=== PATIENT | female | born 1985 | race Caucasian/White ===

== ENCOUNTER → 2017-02-10 | Outpatient (CLI) | payer BC, OTHER ==
[2017-02-10 14:29] LABS: ESTRADIOL 560.1 PG/ML; PROGESTERONE 29.1 NG/ML
== END ==
LOC: M WUC 12:23
PROVIDERS: ATTEND Obstetrics & Gynecology Reproductive Endocrinology
DX: N97.9 Female infertility, unspecified (principal)

== ENCOUNTER → 2017-02-17 | Outpatient (CLI) | payer BC, OTHER ==
[2017-02-17 11:26] LABS: HCG, SERUM QUANTITATIVE < 1.0 MIU/ML
[2017-02-17 11:54] LABS: PROGESTERONE 4.8 NG/ML
== END ==
LOC: M LAB 09:49
PROVIDERS: ATTEND Obstetrics & Gynecology Reproductive Endocrinology
DX: N97.9 Female infertility, unspecified (principal)

== ENCOUNTER → 2017-02-21 | Outpatient (CLI) | payer BC, OTHER ==
--- NOTE | 2017-02-21 16:42 | REP ---
Clinical: Infertility. Technique: Transvaginal ultrasound examination. Findings: Normal anteverted uterus measures 7.8 x 4.0 x 5.1 cm. The endometrial complex measures 4.4 mm thickness with trace fluid in the endocervical canal. Right ovary measures 3.9 x 3.1 x 4.1 cm with 1.5 cm follicle. Left ovary measures 2.6 x 2.1 x 2.0 cm with 6 mm follicle. No pelvic fluid or adnexal mass lesion. Impression: Infertility study as described above without significant follicles noted. Signed by John Valente MD 02/21/2017 04:33 P
[2017-02-21 16:47] LABS: HCG, SERUM QUANTITATIVE < 1.0 MIU/ML; PROGESTERONE 0.9 NG/ML
[2017-02-21 16:48] LABS: ESTRADIOL 40.3 PG/ML; FOLLICLE STIMULATING HORMONE 5.9 mIU/mL; LUTEINIZING HORMONE 2.4 mIU/mL
== END ==
LOC: M LAB 15:48
PROVIDERS: ATTEND Obstetrics & Gynecology Reproductive Endocrinology
DX: E28.9 Ovarian dysfunction, unspecified (principal)

== ENCOUNTER → 2017-07-10 | Outpatient (CLI) | payer BC, OTHER | LOC: M LRY 13:49 | DX: Z34.82 Encounter for supervision of other normal pregnancy, second trimester (principal) ==

== ENCOUNTER → 2017-08-07 | Outpatient (CLI) | payer BC, OTHER | LOC: M LRY 13:51 | DX: Z34.82 Encounter for supervision of other normal pregnancy, second trimester (principal) ==

== ENCOUNTER → 2017-08-26 | Outpatient (CLI) | payer BC, OTHER ==
[2017-08-26 15:30] LABS: HEMATOCRIT 35.4 % (36.0-47.0); HEMOGLOBIN 11.2 g/dl (12.0-16.0); MEAN CORPUSCULAR HEMOGLOBIN 27.5 pg (27.0-33.0); MEAN CORPUSCULAR HGB CONC 31.6 g/dl (32.0-36.5); PLATELET COUNT, AUTOMATED 371 10^3/uL (150-450); RED BLOOD COUNT 4.07 10^6/uL (4.00-5.40); RED CELL DISTRIBUTION WIDTH 14.5 % (11.5-14.5); WHITE BLOOD COUNT 13.6 10^3/uL (4.0-10.0)
[2017-08-26 15:42] LABS: GLUCOSE CHALLENGE TEST 1 HOUR 127 MG/DL (LESS THAN 140)
[2017-08-28 08:44] LABS: RH ONLY RHOGAM 1 1
== END ==
LOC: M LAB 13:33
DX: Z34.82 Encounter for supervision of other normal pregnancy, second trimester (principal)
CPT/HCPCS: 82950

== ENCOUNTER → 2017-09-12 | Outpatient (CLI) | payer BC, OTHER | LOC: M RAD 16:11 | DX: Z34.82 Encounter for supervision of other normal pregnancy, second trimester (principal); Z3A.27 27 weeks gestation of pregnancy ==

== ENCOUNTER → 2017-11-03 | Outpatient (CLI) | payer BC, OTHER | LOC: M LRY 13:41 | DX: O26.843 Uterine size-date discrepancy, third trimester (principal); Z3A.37 37 weeks gestation of pregnancy | CPT/HCPCS: 76816 ==

== ENCOUNTER → 2017-11-10 | Outpatient (REF) | payer OTHER | LOC: M LAB REF 10:55 | DX: Z34.83 Encounter for supervision of other normal pregnancy, third trimester (principal) ==

== ENCOUNTER 2017-12-11 18:08 | Inpatient (IN) | payer BC, OTHER ==
[2017-12-11] MEDS: LACTATED RINGER'S 1000 ML IV (19:40)
[2017-12-11] MEDS: miSOPROStol 50 MCG 1/2 TAB (S0191) SL (19:50)
[2017-12-11 20:13] LABS: HEMATOCRIT 31.8 % (36.0-47.0); HEMOGLOBIN 9.8 g/dl (12.0-15.5); MEAN CORPUSCULAR HGB CONC 30.8 g/dl (32.0-36.5); MEAN CORPUSCULAR VOLUME 81.1 fl (80.0-96.0); PLATELET COUNT, AUTOMATED 290 10^3/uL (150-450); RED BLOOD COUNT 3.92 10^6/uL (4.00-5.40); RED CELL DISTRIBUTION WIDTH 15.6 % (11.5-14.5)
[2017-12-12] MEDS: miSOPROStol 50 MCG 1/2 TAB (S0191) SL ×3 (01:38→13:27)
[2017-12-12] MEDS ORDERED: hydrOXYzine 50 MG TAB PO (02:45)
[2017-12-12] MEDS: BUTORPHANOL 2 MG/ML INJ (J0595) IV ×2 (03:01→07:06)
[2017-12-12] MEDS: PROMETHAZINE INJ 25 MG/ML VIAL (J2550) IV ×2 (03:01→07:06)
[2017-12-12] MEDS: LEVOTHYROXINE 50MCG TABLET (0.05MG) PO (07:07)
[2017-12-12] MEDS: LR 1,000 ML IV ×2 (08:07→09:57)
[2017-12-12] MEDS ORDERED: FENTANYL 2MCG/ML ROPIVACAINE 0.2% IN 0.9% NACL 200ML IVBAG As Ordered (20:09)
[2017-12-13] MEDS ORDERED: OXYTOCIN DRIP 30 UNITS in APPROPRIATE DILUENT 1 EA IV (03:00)
[2017-12-13] MEDS: cefoTEtan DISODIUM 2 GM in D5W MINI-BAG PLUS 50 ML IV ×2 (06:00→17:56)
[2017-12-13] MEDS: LR 1,000 ML IV (06:06)
[2017-12-13] MEDS: OXYTOCIN DRIP 30 UNITS in APPROPRIATE DILUENT 1 EA IV (06:06)
[2017-12-13] MEDS ORDERED: OXYTOCIN 30 UNITS IN 0.9% NaCl 500ML IV BAG (J2590) As Ordered (06:09)
[2017-12-13] MEDS ORDERED: ACETAMINOPHEN 500 MG TAB PO (06:15)
[2017-12-13] MEDS ORDERED: PROMETHAZINE 25 MG TAB PO (06:15)
[2017-12-13] MEDS ORDERED: DIBUCAINE 1% OINTMENT 30GM TOP (06:15)
[2017-12-13] MEDS ORDERED: MEASLES,MUMPS,RUBELLA VACCINE INJ (MMR-II) (90707) SC (06:15)
[2017-12-13] MEDS ORDERED: ONDANSETRON 4MG/2ML VIAL (J2405) IV (06:15)
[2017-12-13] MEDS: LEVOTHYROXINE 50MCG TABLET (0.05MG) PO (06:54)
[2017-12-13] MEDS: PRENATAL VITAMINS CHEWABLE TABLET PO (09:04)
[2017-12-13] MEDS: IBUPROFEN 800 MG TAB PO ×2 (09:05→17:18)
[2017-12-14] MEDS: LEVOTHYROXINE 50MCG TABLET (0.05MG) PO (05:40)
[2017-12-14 08:46] LABS: FETAL SCREEN PROF. 1 1
[2017-12-14] MEDS: PRENATAL VITAMINS CHEWABLE TABLET PO (09:09)
[2017-12-14] MEDS: DOCUSATE SODIUM 100 MG CAP PO (09:09)
[2017-12-14] MEDS: RHOGAM 300 MCG (1500 IU) INJ (J2790) IM (09:11)
[2017-12-15] MEDS: LEVOTHYROXINE 50MCG TABLET (0.05MG) PO (05:53)
[2017-12-15] MEDS: PRENATAL VITAMINS CHEWABLE TABLET PO (09:34)
== END 2017-12-15 12:45 | disposition home or self-care (01) | DRG 542 ==
LOC: M LDI 18:08 → M OBS 12-13 08:30
PROVIDERS: Advanced Practice Midwife
PROC: 3E0DXGC Introduction of Other Therapeutic Substance into Mouth and Pharynx, External Approach (ICD-10-PCS; 2017-12-11)
PROC: 10E0XZZ Delivery of Products of Conception, External Approach (ICD-10-PCS; principal; 2017-12-13)
PROC: 0DQR0ZZ Repair Anal Sphincter, Open Approach (ICD-10-PCS; 2017-12-13)
PROC: 10907ZC Drainage of Amniotic Fluid, Therapeutic from Products of Conception, Via Natural or Artificial Opening (ICD-10-PCS; 2017-12-13)
PROC: 30233S1 Transfusion of Nonautologous Globulin into Peripheral Vein, Percutaneous Approach (ICD-10-PCS; 2017-12-14)
DX: O48.0 Post-term pregnancy (principal); Z68.43 Body mass index [BMI] 50.0-59.9, adult; O36.0130 Maternal care for anti-D [Rh] antibodies, third trimester, not applicable or unspecified; E66.01 Morbid (severe) obesity due to excess calories; O70.21 Third degree perineal laceration during delivery, IIIa; O99.284 Endocrine, nutritional and metabolic diseases complicating childbirth; E03.8 Other specified hypothyroidism; O99.824 Streptococcus B carrier state complicating childbirth; O99.214 Obesity complicating childbirth; Z37.0 Single live birth; Z3A.41 41 weeks gestation of pregnancy; Z79.899 Other long term (current) drug therapy

== ENCOUNTER 2018-03-16 09:58 | Day surgery (SDC) | payer BC, OTHER ==
[~2018-03-16 09:58] MED LIST: LR 1,000 ML IV
[2018-03-16 10:43] LABS: CONTROL LINE UCG INT CTR LINE PRESENT; URINE PREG TEST NEGATIVE (NEGATIVE)
[2018-03-16] MEDS ORDERED: ONDANSETRON 4MG/2ML VIAL (J2405) As Ordered (11:31)
[2018-03-16] MEDS ORDERED: KETOROLAC 60 MG/2 ML VIAL (J1885) As Ordered (11:31)
[2018-03-16] MEDS ORDERED: LIDOCAINE 2% INJ 100 MG/5 ML SDV (FOR ANES.) As Ordered (11:31)
[2018-03-16] MEDS ORDERED: fentaNYL 250 MCG/5 ML INJECTION (J3010) As Ordered (11:31)
[2018-03-16] MEDS ORDERED: dexameTHASONE 4 MG/ML 1ML VIAL (J1100) As Ordered (11:31)
[2018-03-16] MEDS ORDERED: MIDAZOLAM INJ 2 MG/2 ML VIAL (J2250) As Ordered (11:31)
[2018-03-16] MEDS ORDERED: ROCURONIUM BROMIDE 50 MG/5 ML VIAL As Ordered ×2 (11:31→13:25)
[2018-03-16] MEDS ORDERED: PROPOFOL 200 MG/20 ML VIAL As Ordered (11:31)
[2018-03-16] MEDS ORDERED: SUGAMMADEX SODIUM 500 MG/5 ML VIAL (BRIDION) As Ordered (14:14)
[2018-03-16] MEDS ORDERED: HYDROmorphone HCL 2 MG/ML 1ML VIAL (J1170) As Ordered (14:14)
[2018-03-16] MEDS: BUPIVACAINE HCL 0.25% 30 ML VIAL As Ordered (15:00)
[2018-03-16] MEDS ORDERED: ALBUTEROL 6.7GM INHALER **FOR ANES. CART/OMNICELL ONLY As Ordered (15:33)
[2018-03-16] MEDS ORDERED: LR 1,000 ML IV (15:45)
[2018-03-16] MEDS ORDERED: ACETAMINOPHEN TAB 650MG DOSE (2X325MG) PO (15:45)
[2018-03-16] MEDS ORDERED: PERCOCET 5MG/325MG TAB PO (15:45)
[2018-03-16] MEDS ORDERED: ONDANSETRON 4MG/2ML VIAL (J2405) IV (15:45)
[2018-03-16] MEDS ORDERED: fentaNYL 100 MCG/2 ML INJECTION (J3010) IV (15:45)
[2018-03-16] MEDS ORDERED: IBUPROFEN 600 MG TAB PO (16:00)
[2018-03-16] MEDS ORDERED: NORCO, ANEXSIA 5/325MG TABLET (HYDROcodone/ACETAMINOPHEN) PO (16:00)
[2018-03-16] MEDS: METOCLOPRAMIDE INJ 10MG/2ML VIAL (J2765) IV (17:40)
[2018-03-16] MEDS ORDERED: METOCLOPRAMIDE INJ 10MG/2ML VIAL (J2765) As Ordered (17:40)
== END 2018-03-16 18:35 | disposition home or self-care (01) ==
LOC: M SDC 09:58
DX: K80.10 Calculus of gallbladder with chronic cholecystitis without obstruction (principal); E66.9 Obesity, unspecified; Z68.42 Body mass index [BMI] 45.0-49.9, adult; Z88.2 Allergy status to sulfonamides
CPT/HCPCS: 47562

== ENCOUNTER → 2018-08-18 | Outpatient (REF) | payer BC, OTHER ==
[~2018-08-18] MED LIST changes: +ALLE180T33 PO; +IBUP-1114 PO; +LEVO50TA5 PO; -LR 1,000 ML IV; +MAPA500T2 PO; +PRENTAB9 PO
== END ==
LOC: M LAB REF 12:42
PROVIDERS: ATTEND Internal Medicine
DX: R19.7 Diarrhea, unspecified (principal)

== ENCOUNTER → 2020-06-19 | Outpatient (CLI) | payer BC, OTHER ==
[2020-06-19 16:03] LABS: BASO % 0.2 % (0.0-1.0); EOS # 0.1 10^3/uL (0.0-0.5); HEMATOCRIT 37.8 % (36.0-47.0); HEMOGLOBIN 11.5 g/dl (12.0-15.5); LYMPH # 1.9 10^3/uL (1.5-5.0); MEAN CORPUSCULAR HGB CONC 30.4 g/dl (32.0-36.5); MEAN CORPUSCULAR VOLUME 85.5 fl (80.0-96.0); MONO # 0.6 10^3/uL (0.0-0.8); NEUTROPHILS # 5.6 10^3/uL (1.5-8.5); NEUTROPHILS % 68.6 % (36.0-66.0); PLATELET COUNT, AUTOMATED 240 10^3/uL (150-450); RED BLOOD COUNT 4.42 10^6/uL (4.00-5.40); WHITE BLOOD COUNT 8.1 10^3/uL (4.0-10.0)
[2020-06-19 16:32] LABS: BLOOD UREA NITROGEN 18 MG/DL (7-18); CALCIUM LEVEL 8.7 MG/DL (8.5-10.1); CARBON DIOXIDE LEVEL 26 MEQ/L (21-32); CHLORIDE LEVEL 111 MEQ/L (98-107); CREATININE FOR GFR 0.78 MG/DL (0.55-1.30); GLOMERULAR FILTRATION RATE > 60.0 (>60); GLUCOSE, FASTING 94 MG/DL (70-100); POTASSIUM SERUM 4.2 MEQ/L (3.5-5.1); SODIUM LEVEL 143 MEQ/L (136-145)
[2020-06-19 16:33] LABS: ALBUMIN 3.6 GM/DL (3.2-5.2); ALT/SGPT 17 U/L (12-78); BILIRUBIN,TOTAL 0.3 MG/DL (0.2-1.0); FERRITIN 11 NG/ML (8-252); IRON (FE) 59 UG/DL (50-170); PERCENT SATURATION 18.2 % (13.2-45.0); TOTAL IRON BINDING CAPACITY 324 UG/DL (250-450); TOTAL PROTEIN 6.9 GM/DL (6.4-8.2)
[2020-06-22 10:30] LABS: TOTAL 25(OH) VITAMIN D 45.1 NG/ML (30.0-100.0); VITAMIN B12 LEVEL 629 PG/ML (247-911)
[2020-06-22 10:32] LABS: FOLATE > 24.0 NG/ML (>5.4)
== END ==
LOC: M LAB 15:22
PROVIDERS: ATTEND Registered Nurse
DX: E55.9 Vitamin D deficiency, unspecified (principal)

== ENCOUNTER → 2021-01-13 | Outpatient (CLI) | payer BC, OTHER ==
[2021-01-13 10:55] LABS: BASO % 0.5 % (0.0-1.0); EOS % 0.7 % (0.0-3.0); HEMATOCRIT 41.4 % (36.0-47.0); HEMOGLOBIN 12.7 g/dl (12.0-15.5); LYMPH # 1.4 10^3/uL (1.5-5.0); LYMPH % 24.2 % (24.0-44.0); MEAN CORPUSCULAR HGB CONC 30.7 g/dl (32.0-36.5); MEAN CORPUSCULAR VOLUME 84.8 fl (80.0-96.0); MONO # 0.3 10^3/uL (0.0-0.8); MONO % 5.8 % (2.0-8.0); NEUTROPHILS # 4.1 10^3/uL (1.5-8.5); NEUTROPHILS % 68.6 % (36.0-66.0); PLATELET COUNT, AUTOMATED 255 10^3/uL (150-450); RED BLOOD COUNT 4.88 10^6/uL (4.00-5.40); WHITE BLOOD COUNT 5.9 10^3/uL (4.0-10.0)
[2021-01-13 11:29] LABS: ALBUMIN 3.7 GM/DL (3.2-5.2); ALT/SGPT 16 U/L (12-78); BILIRUBIN,TOTAL 0.4 MG/DL (0.2-1.0); BLOOD UREA NITROGEN 14 MG/DL (7-18); CALCIUM LEVEL 9.2 MG/DL (8.5-10.1); CARBON DIOXIDE LEVEL 29 MEQ/L (21-32); CHLORIDE LEVEL 110 MEQ/L (98-107); CREATININE FOR GFR 0.82 MG/DL (0.55-1.30); FERRITIN 16 NG/ML (8-252); GLOMERULAR FILTRATION RATE > 60.0 (>60); GLUCOSE, FASTING 88 MG/DL (70-100); IRON (FE) 27 UG/DL (50-170); PERCENT SATURATION 8.1 % (13.2-45.0); POTASSIUM SERUM 4.7 MEQ/L (3.5-5.1); SODIUM LEVEL 143 MEQ/L (136-145); TOTAL IRON BINDING CAPACITY 333 UG/DL (250-450); TOTAL PROTEIN 7.2 GM/DL (6.4-8.2)
[2021-01-13 11:31] LABS: TOTAL 25(OH) VITAMIN D 55.7 NG/ML (30.0-100.0)
[2021-01-13 11:32] LABS: FOLATE 11.5 NG/ML (>5.4); VITAMIN B12 LEVEL 1892 PG/ML (247-911)
== END ==
LOC: M LAB 10:04
PROVIDERS: ATTEND Registered Nurse
DX: Z01.812 Encounter for preprocedural laboratory examination (principal); D56.0 Alpha thalassemia; E55.9 Vitamin D deficiency, unspecified; D51.9 Vitamin B12 deficiency anemia, unspecified; E51.9 Thiamine deficiency, unspecified

== ENCOUNTER → 2021-11-10 | Outpatient (CLI) | payer BC, OTHER | LOC: M LAB 16:47 | PROVIDERS: ATTEND Obstetrics & Gynecology | DX: Z32.01 Encounter for pregnancy test, result positive (principal) ==

== ENCOUNTER → 2021-11-29 | Outpatient (CLI) | payer BC, OTHER ==
[2021-11-29 16:28] LABS: HEMOGLOBIN 14.9 g/dl (12.0-15.5); MEAN CORPUSCULAR HEMOGLOBIN 28.4 pg (27.0-33.0); MEAN CORPUSCULAR HGB CONC 32.4 g/dl (32.0-36.5); MEAN CORPUSCULAR VOLUME 87.8 fl (80.0-96.0); PLATELET COUNT, AUTOMATED 202 10^3/uL (150-450); RED BLOOD COUNT 5.24 10^6/uL (4.00-5.40); WHITE BLOOD COUNT 9.4 10^3/uL (4.0-10.0)
[2021-11-29 17:24] LABS: GC DNA AMPLIFICATION NEGATIVE (NEGATIVE)
[2021-11-29 17:49] LABS: HEPATITIS C VIRUS ABY INDEX 0.1 INDEX (<0.8); HIV 1&2 SCREEN CENTAUR NEGATIVE (NEGATIVE)
== END ==
LOC: M PLALAB 12:16
PROVIDERS: ATTEND Obstetrics & Gynecology
DX: Z34.91 Encounter for supervision of normal pregnancy, unspecified, first trimester (principal)

== ENCOUNTER → 2021-12-27 | Outpatient (REF) | payer OTHER | LOC: M SFHCWAGY 16:38 | PROVIDERS: ATTEND Obstetrics & Gynecology | DX: O99.842 Bariatric surgery status complicating pregnancy, second trimester (principal) ==

== ENCOUNTER → 2022-02-02 | Outpatient (CLI) | payer BC, OTHER | LOC: M WHC 12:59 | PROVIDERS: ATTEND Obstetrics & Gynecology | DX: O99.842 Bariatric surgery status complicating pregnancy, second trimester (principal); Z3A.20 20 weeks gestation of pregnancy ==

== ENCOUNTER → 2022-03-01 | Outpatient (CLI) | payer BC, OTHER ==
[2022-03-01 10:56] LABS: HEMATOCRIT 38.8 % (36.0-47.0); HEMOGLOBIN 12.3 g/dl (12.0-15.5); MEAN CORPUSCULAR HEMOGLOBIN 29.5 pg (27.0-33.0); MEAN CORPUSCULAR HGB CONC 31.7 g/dl (32.0-36.5); PLATELET COUNT, AUTOMATED 284 10^3/uL (150-450); RED BLOOD COUNT 4.17 10^6/uL (4.00-5.40); WHITE BLOOD COUNT 8.9 10^3/uL (4.0-10.0)
[2022-03-01 11:37] LABS: ALBUMIN 2.8 GM/DL (3.2-5.2); ALT/SGPT 10 U/L (12-78); BILIRUBIN,TOTAL 0.3 MG/DL (0.2-1.0); BLOOD UREA NITROGEN 11 MG/DL (7-18); CALCIUM LEVEL 8.9 MG/DL (8.5-10.1); CARBON DIOXIDE LEVEL 21 MEQ/L (21-32); CHLORIDE LEVEL 108 MEQ/L (98-107); GLOMERULAR FILTRATION RATE > 60.0 (>60); GLUCOSE, FASTING 81 MG/DL (70-100); POTASSIUM SERUM 4.8 MEQ/L (3.5-5.1); SODIUM LEVEL 137 MEQ/L (136-145); TOTAL PROTEIN 6.6 GM/DL (6.4-8.2)
[2022-03-01 11:53] LABS: HEMOGLOBIN A1c 4.9 %
== END ==
LOC: M PLALAB 08:45
PROVIDERS: ATTEND Obstetrics & Gynecology
DX: O09.292 Supervision of pregnancy with other poor reproductive or obstetric history, second trimester (principal)

== ENCOUNTER → 2022-03-11 | Outpatient (CLI) | payer BC, OTHER | LOC: M WHC 14:52 | PROVIDERS: ATTEND Obstetrics & Gynecology | DX: O09.292 Supervision of pregnancy with other poor reproductive or obstetric history, second trimester (principal) ==

== ENCOUNTER → 2022-04-01 | Outpatient (CLI) | payer BC, OTHER ==
[2022-04-01 17:13] LABS: HEMATOCRIT 36.2 % (36.0-47.0); HEMOGLOBIN 11.4 g/dl (12.0-15.5); MEAN CORPUSCULAR HGB CONC 31.5 g/dl (32.0-36.5); MEAN CORPUSCULAR VOLUME 92.1 fl (80.0-96.0); PLATELET COUNT, AUTOMATED 304 10^3/uL (150-450); RED BLOOD COUNT 3.93 10^6/uL (4.00-5.40); WHITE BLOOD COUNT 11.5 10^3/uL (4.0-10.0)
== END ==
LOC: M PLALAB 14:59
PROVIDERS: ATTEND Obstetrics & Gynecology
DX: O09.293 Supervision of pregnancy with other poor reproductive or obstetric history, third trimester (principal)

== ENCOUNTER → 2022-04-08 | Outpatient (CLI) | payer BC, OTHER | LOC: M WHC 13:29 | PROVIDERS: ATTEND Obstetrics & Gynecology | DX: Z36.2 Encounter for other antenatal screening follow-up (principal); Z3A.31 31 weeks gestation of pregnancy ==

== ENCOUNTER → 2022-04-12 | Outpatient (CLI) | payer BC, OTHER ==
[2022-04-14 16:08] LABS: ANTI PARVO VIRUS LEVEL IGG 8.6 index (0.0-0.8); ANTI PARVO VIRUS LEVEL IgM 0.2 index (0.0-0.8)
== END ==
LOC: M PLALAB 15:19
PROVIDERS: ATTEND Advanced Practice Midwife
DX: Z20.89 Contact with and (suspected) exposure to other communicable diseases (principal)

== ENCOUNTER → 2022-05-17 | Outpatient (REF) | payer BC, OTHER | LOC: M SFHCWAGY 13:19 | PROVIDERS: ATTEND Obstetrics & Gynecology | DX: Z36.89 Encounter for other specified antenatal screening (principal); Z3A.35 35 weeks gestation of pregnancy ==

== ENCOUNTER → 2022-06-09 | Outpatient (CLI) | payer BC, OTHER ==
[~2022-06-09] MED LIST changes: +PRENTAB7 PO
== END ==
LOC: M LABSMTC 09:12
PROVIDERS: ATTEND Anesthesiology
DX: Z01.812 Encounter for preprocedural laboratory examination (principal); Z11.52 Encounter for screening for COVID-19

== ENCOUNTER → 2023-01-17 | Outpatient (CLI) | payer BC, OTHER ==
[~2023-01-17] MED LIST changes: +ACET-897 PO
[2023-01-17 14:03] LABS: HCG, SERUM QUALITATIVE NEGATIVE (NEGATIVE)
[2023-01-17 14:07] LABS: HEMOGLOBIN A1c 5.2 % (4.0-6.0)
[2023-01-17 14:08] LABS: PROLACTIN 9.33 NG/ML; THYROID STIMULATING HORMONE 2.311 uIU/ML (0.55-4.78)
== END ==
LOC: M PLALAB 09:06
PROVIDERS: ATTEND Advanced Practice Midwife
DX: N92.1 Excessive and frequent menstruation with irregular cycle (principal)

== ENCOUNTER → 2023-01-20 | Outpatient (CLI) | payer BC, OTHER | LOC: M WHC 13:58 | PROVIDERS: ATTEND Advanced Practice Midwife | DX: N92.1 Excessive and frequent menstruation with irregular cycle (principal) ==

== ENCOUNTER → 2023-02-08 | Outpatient (REF) | payer OTHER, BC ==
[2023-02-08 18:36] LABS: HEMATOCRIT 40.9 % (36.0-47.0); HEMOGLOBIN 12.3 g/dl (12.0-15.5); MEAN CORPUSCULAR HEMOGLOBIN 24.6 pg (27.0-33.0); MEAN CORPUSCULAR HGB CONC 30.1 g/dl (32.0-36.5); MEAN CORPUSCULAR VOLUME 81.6 fl (80.0-96.0); PLATELET COUNT, AUTOMATED 233 10^3/uL (150-450); RED BLOOD COUNT 5.01 10^6/uL (4.00-5.40); WHITE BLOOD COUNT 7.4 10^3/uL (4.0-10.0)
[2023-02-08 19:07] LABS: ALBUMIN 3.8 G/DL (3.2-5.2); ALKALINE PHOSPHATASE 100 U/L (46-116); ALT/SGPT 15 U/L (7.0-40); AST/SGOT 11 U/L (<34); BILIRUBIN,TOTAL 0.3 MG/DL (0.3-1.2); BLOOD UREA NITROGEN 17 MG/DL (9-23); CARBON DIOXIDE LEVEL 26 MMOL/L (20-31); CHLORIDE LEVEL 105 MMOL/L (98-107); CREATININE FOR GFR 0.84 MG/DL (0.55-1.30); GLOMERULAR FILTRATION RATE > 60.0 (>60); GLUCOSE, FASTING 67 MG/DL (60-100); POTASSIUM SERUM 4.6 MMOL/L (3.5-5.1); SODIUM LEVEL 140 MMOL/L (136-145); TOTAL PROTEIN 7.3 G/DL (5.7-8.2)
== END ==
LOC: M SFHCPLAZ 17:05
PROVIDERS: ATTEND Advanced Practice Midwife
DX: N92.1 Excessive and frequent menstruation with irregular cycle (principal); R53.83 Other fatigue

== ENCOUNTER → 2023-03-22 | Day surgery (SDC) | payer BC, OTHER ==
[~2023-03-22] VITALS: Ht 180.3 cm; Wt 143.7 kg
[~2023-03-22] MED LIST changes: +ACETAMINOPHEN 1000MG 100ML IV BAG As Ordered ONE; +CVS5000S2 PO; +HYDROMORPHONE HCL 0.5 MG/ 0.5 ML SYRINGE IV PRN; +LIDOCAINE 2% 100MG/5ML SDV (FOR ANES.) As Ordered ONE; +LR 1,000 ML IV SCH; +MIDAZOLAM INJ 2MG/2ML VIAL As Ordered ONE; +ONDANSETRON 4MG 2ML VIAL As Ordered ONE; +ONDANSETRON 4MG 2ML VIAL IV PRN; +VITMTA PO; +fentaNYL 100 MCG/2 ML INJECTION As Ordered ONE; +fentaNYL 100 MCG/2 ML INJECTION IV PRN; +oxyCODONE 5MG TAB PO PRN; +propofoL 200 MG/20 ML VIAL As Ordered ONE
[2023-03-22 08:00] LABS: HEMATOCRIT 40.4 % (36.0-47.0); MEAN CORPUSCULAR HEMOGLOBIN 24.7 pg (27.0-33.0); MEAN CORPUSCULAR HGB CONC 29.7 g/dl (32.0-36.5); MEAN CORPUSCULAR VOLUME 83.3 fl (80.0-96.0); PLATELET COUNT, AUTOMATED 248 10^3/uL (150-450); RED BLOOD COUNT 4.85 10^6/uL (4.00-5.40); WHITE BLOOD COUNT 6.6 10^3/uL (4.0-10.0)
[2023-03-22 12:15] VITALS: BP 141/89; TEMP 97.3; O2SAT 100
== END | disposition home or self-care (01) ==
LOC: M SDC 07:24
PROVIDERS: ATTEND Obstetrics & Gynecology
DX: N85.8 Other specified noninflammatory disorders of uterus (principal); Z88.2 Allergy status to sulfonamides; Z68.41 Body mass index [BMI] 40.0-44.9, adult; Z98.84 Bariatric surgery status
CPT/HCPCS: 36415; 58563; 81025; 85027; 86850; 86900; 86901; 88305; J0131; J1100; J2250; J2405; J3010